=== PATIENT | male | born 1950 | race Caucasian/White ===

== ENCOUNTER 2016-08-11 08:58 | Inpatient (IN) | payer MEDICARE ==
[~2016-08-11] VITALS: Ht 188 cm; Wt 79.7 kg
[2016-08-11] MEDS ORDERED: ZOLP-413 PO (09:21)
[2016-08-11] MEDS ORDERED: HYDR12.53 PO (09:21)
[2016-08-11] MEDS ORDERED: LEVO112T4 PO (09:21)
[2016-08-11] MEDS ORDERED: SODIUM CHLORIDE 0.9% 1,000ML IVBOLUS ONE ×2 (09:30→11:00)
[2016-08-11] MEDS ORDERED: GLUCAGON 1 MG IM ONE (09:30)
[2016-08-11] MEDS ORDERED: CALCIUM GLUCONATE 0.46MEQ/1ML IVPush ONE (09:30)
[2016-08-11] MEDS ORDERED: SODIUM CHLORIDE FLUSH 10ML SYR IVF ONE (09:30)
[2016-08-11] MEDS ORDERED: GLUCAGON 1 MG ONE (09:33)
[2016-08-11 09:47] LABS: BLOOD UREA NITROGEN 28 mg/dL (7-18)
[2016-08-11 09:52] LABS: ASPARTATE AMINO TRANSFERASE 26 U/L (15-37)
[2016-08-11 09:53] LABS: IS PT STATUS REG ER OR PRE ER? YES
[2016-08-11] MEDS ORDERED: LEVOTHYROXINE 112 MCG TABLET PO SCH (12:30)
[2016-08-11] MEDS ORDERED: HYDROCORTISONE 20 MG TABLET PO ONE (12:30)
[2016-08-11] MEDS ORDERED: POTASSIUM CHLORIDE 20 MEQ TAB.ER.PRT PO ONE (12:30)
[2016-08-11] MEDS ORDERED: LORazepam 0.5MG TABLET PO PRN (13:00)
[2016-08-11] MEDS ORDERED: BISACODYL 10 MG SUPP PR PRN (13:00)
[2016-08-11] MEDS ORDERED: POLYETHYLENE GLYCOL 17 GM PACKET PO PRN (13:00)
[2016-08-11] MEDS ORDERED: ONDANSETRON 2MG/ML, 2ML IVPush PRN (13:00)
[2016-08-11] MEDS: NS + 20MEQ KCL 1,000 ML IV SCH ×3 (13:00→22:56)
[2016-08-11] MEDS ORDERED: LORazepam 1MG TABLET PO PRN (13:00)
[2016-08-11] MEDS ORDERED: DOCUSATE 100 MG CAPSULE PO PRN (13:00)
[2016-08-11] MEDS ORDERED: LORazepam 2 MG/ML, 1ML IV PRN ×2 (13:00)
[2016-08-11] MEDS ORDERED: ONDANSETRON ODT 4 MG PO PRN (13:00)
[2016-08-11 13:25] VITALS: BP 81/48
[2016-08-11] MEDS: HEPARIN 5,000 UNITS/ML, 1ML SQ SCH ×2 (13:58→21:42)
[2016-08-11] MEDS: POTASSIUM CHLORIDE 20 MEQ, MAGNESIUM SULFATE 2 GM, THIAMINE 100 MG, MVI ADULT 10 ML, FO... IV SCH ×2 (13:58→23:00)
[2016-08-11] MEDS: NICOTINE 14MG/24 HR PATCH.TD24 TD SCH (13:59)
[2016-08-11 14:27] LABS: IS PT STATUS REG ER OR PRE ER? YES
[2016-08-11 15:00] VITALS: BP 95/57
[2016-08-11] MEDS ORDERED: CHOL10002 PO (15:12)
[2016-08-11] MEDS ORDERED: BEER 12 OZ CAN PO SCH (17:00)
[2016-08-11] MEDS: ACETAMINOPHEN 325 MG TABLET PO PRN (19:08)
[2016-08-11 19:23] VITALS: BP 89/47
[2016-08-11 21:36] VITALS: BP 88/47
[2016-08-11 21:41] VITALS: BP 93/54
[2016-08-11 22:19] LABS: IS PT STATUS REG ER OR PRE ER? NO
[2016-08-12 01:05] VITALS: BP 92/56
[2016-08-12] MEDS: NS + 20MEQ KCL 1,000 ML IV SCH ×2 (05:23→20:21)
[2016-08-12] MEDS: HEPARIN 5,000 UNITS/ML, 1ML SQ SCH ×3 (05:23→23:02)
[2016-08-12 05:34] LABS: BLOOD UREA NITROGEN 14 mg/dL (7-18)
[2016-08-12 05:39] LABS: ASPARTATE AMINO TRANSFERASE 24 U/L (15-37)
[2016-08-12 07:36] VITALS: BP 93/55
[2016-08-12] MEDS: LEVOTHYROXINE 112 MCG TABLET PO SCH (07:40)
[2016-08-12] MEDS: ACETAMINOPHEN 325 MG TABLET PO PRN ×2 (07:41→20:21)
[2016-08-12] MEDS: POTASSIUM CHLORIDE 20 MEQ, MAGNESIUM SULFATE 2 GM, THIAMINE 100 MG, MVI ADULT 10 ML, FO... IV SCH ×2 (08:45→19:32)
[2016-08-12 14:04] VITALS: BP 115/73
[2016-08-12] MEDS: NICOTINE 14MG/24 HR PATCH.TD24 TD SCH (15:24)
[2016-08-12] MEDS: BEER 12 OZ CAN PO SCH (15:38)
[2016-08-12] MEDS ORDERED: HYDROCORTISONE 10 MG TABLET PO SCH ×2 (17:00)
[2016-08-12 19:30] VITALS: BP 125/76
[2016-08-12 19:39] VITALS: BP 106/69
[2016-08-13 01:34] VITALS: BP 124/70
[2016-08-13] MEDS: NS + 20MEQ KCL 1,000 ML IV SCH (02:23)
[2016-08-13 06:08] LABS: ASPARTATE AMINO TRANSFERASE 36 U/L (15-37); BLOOD UREA NITROGEN 7 mg/dL (7-18)
[2016-08-13 06:39] VITALS: BP 130/75
[2016-08-13] MEDS: HEPARIN 5,000 UNITS/ML, 1ML SQ SCH ×3 (09:08→23:05)
[2016-08-13] MEDS: LEVOTHYROXINE 112 MCG TABLET PO SCH (09:08)
[2016-08-13] MEDS: ACETAMINOPHEN 325 MG TABLET PO PRN ×3 (09:11→23:05)
[2016-08-13] MEDS: BEER 12 OZ CAN PO SCH (13:21)
[2016-08-13 14:50] VITALS: BP_SYST 129; BP_SYST 145; BP_SYST 152; BP_DIAS 78; BP_DIAS 84; BP_DIAS 89
[2016-08-13] MEDS: NICOTINE 14MG/24 HR PATCH.TD24 TD SCH (16:03)
[2016-08-13] MEDS: HYDROCORTISONE 10 MG TABLET PO SCH (16:05)
[2016-08-13 20:00] VITALS: BP_SYST 126; BP_SYST 146; BP_SYST 151; BP_DIAS 76; BP_DIAS 81; BP_DIAS 85
[2016-08-14 00:40] VITALS: BP_SYST 122; BP_SYST 127; BP_SYST 141; BP_DIAS 71; BP_DIAS 83; BP_DIAS 88
[2016-08-14] MEDS: HEPARIN 5,000 UNITS/ML, 1ML SQ SCH ×3 (06:11→23:13)
[2016-08-14] MEDS: ACETAMINOPHEN 325 MG TABLET PO PRN ×3 (06:26→23:13)
[2016-08-14] MEDS: HYDROCORTISONE 10 MG TABLET PO SCH (08:29)
[2016-08-14] MEDS: LEVOTHYROXINE 112 MCG TABLET PO SCH (08:29)
[2016-08-14 09:15] VITALS: BP 124/71
[2016-08-14] MEDS: BEER 12 OZ CAN PO SCH (11:13)
[2016-08-14] MEDS: NICOTINE 14MG/24 HR PATCH.TD24 TD SCH (13:14)
[2016-08-14 15:02] VITALS: BP 130/79
[2016-08-14 19:54] VITALS: BP_SYST 110; BP_SYST 121; BP_SYST 134; BP_DIAS 63; BP_DIAS 70; BP_DIAS 73
[2016-08-15 02:19] VITALS: BP 105/66
[2016-08-15 02:22] VITALS: BP 96/64
[2016-08-15 02:23] VITALS: BP 107/69
[2016-08-15 07:58] VITALS: BP 112/75
[2016-08-15] MEDS: LEVOTHYROXINE 112 MCG TABLET PO SCH (08:55)
[2016-08-15] MEDS: HEPARIN 5,000 UNITS/ML, 1ML SQ SCH ×3 (08:55→23:57)
[2016-08-15] MEDS: BEER 12 OZ CAN PO SCH (09:08)
[2016-08-15] MEDS ORDERED: NICO1PAT4 TD (11:50)
[2016-08-15] MEDS ORDERED: POLY17PO5 PO (11:50)
[2016-08-15] MEDS: NICOTINE 14MG/24 HR PATCH.TD24 TD SCH (14:22)
[2016-08-15 14:46] VITALS: BP 109/50
[2016-08-15 20:00] VITALS: BP_SYST 110; BP_SYST 114; BP_SYST 125; BP_DIAS 69; BP_DIAS 70; BP_DIAS 71
[2016-08-15] MEDS: ACETAMINOPHEN 325 MG TABLET PO PRN (21:03)
[2016-08-16 02:00] VITALS: BP 120/74
[2016-08-16 07:50] VITALS: BP 149/82
[2016-08-16] MEDS: LEVOTHYROXINE 112 MCG TABLET PO SCH (09:18)
[2016-08-16] MEDS: HEPARIN 5,000 UNITS/ML, 1ML SQ SCH (09:19)
[2016-08-16] MEDS: BEER 12 OZ CAN PO SCH (09:19)
[2016-08-16] MEDS: NICOTINE 14MG/24 HR PATCH.TD24 TD SCH (12:54)
[2016-08-16 14:30] VITALS: BP 113/66
== END 2016-08-16 15:30 | DRG 682 ==
LOC: ED 11:44 → EDIP 11:45 → ED 11:53 → 4WST 13:06
PROVIDERS: ADMIT Internal Medicine; ATTEND Internal Medicine
DX: N17.0 Acute kidney failure with tubular necrosis (principal); E43 Unspecified severe protein-calorie malnutrition; E27.40 Unspecified adrenocortical insufficiency; R57.9 Shock, unspecified; E86.0 Dehydration; Z68.22 Body mass index [BMI] 22.0-22.9, adult; D64.9 Anemia, unspecified; E03.9 Hypothyroidism, unspecified; E83.51 Hypocalcemia; E87.6 Hypokalemia; F10.20 Alcohol dependence, uncomplicated; F17.210 Nicotine dependence, cigarettes, uncomplicated; F51.04 Psychophysiologic insomnia; G89.29 Other chronic pain; I10 Essential (primary) hypertension; Z63.8 Other specified problems related to primary support group; Z66 Do not resuscitate; Z80.0 Family history of malignant neoplasm of digestive organs
CPT/HCPCS: 36415; 71010; 80053; 82330; 82533; 83735; 83880; 84100; 84439; 84443; 84481; 84484; 85025; 93005; 93306; 96361; 96372; 96374; J0610; J1644; J3411; J3475; J3480; J7042; J1610; J7030